=== PATIENT | female | born 2000 | race Caucasian/White ===

== ENCOUNTER 2023-11-09 01:06 | Emergency (ER) | payer MEDICAID, OTHER ==
[~2023-11-09] VITALS: Ht 162.6 cm; Wt 86.4 kg
[~2023-11-09 01:06] MED LIST: CLOB15CR10 TP; DIPH25CA53 PO; PRED-554 PO
[2023-11-09] MEDS ORDERED: BACTDSB PO (02:10)
[2023-11-09] MEDS ORDERED: LIDOCAINE/PF 1% 2 ML VIAL IM ONE (02:15)
[2023-11-09] MEDS ORDERED: CefTRIAXone SODIUM 1 GM/VIAL IM ONE (02:15)
[2023-11-09 02:37] VITALS: BP 116/73; PULSE 79; RESP 16; TEMP 98.3
== END 2023-11-09 02:40 | disposition home or self-care (01) ==
LOC: EMS 01:07
DX: L03.114 Cellulitis of left upper limb (principal); Z98.890 Other specified postprocedural states
CPT/HCPCS: 99283; 96372; J0696

== ENCOUNTER 2025-07-15 02:31 | Emergency (ER) | payer SELFPAY ==
[~2025-07-15] VITALS: Ht 162.6 cm; Wt 95.5 kg
[~2025-07-15 02:31] MED LIST changes: +BACTDSB PO; +CEPH-558 PO; +PHEN-846 PO
[2025-07-15 02:40] VITALS: TEMP 98.1
[2025-07-15 02:59] VITALS: BP 119/65; PULSE 74; RESP 16; O2SAT 98
[2025-07-15 03:14] LABS: APPEARANCE,URINE CLEAR (CLEAR); GLUCOSE, URINE (UA) NEGATIVE (NEGATIVE); LEUKOCYTE ESTERASE ,URINE SMALL (NEGATIVE); NITRATE,URINE NEGATIVE (NEGATIVE); OCCULT BLOOD,URINE NEGATIVE (NEGATIVE); SPECIFIC GRAVITIY, URINE 1.007 (1.003-1.030)
[2025-07-15 03:16] LABS: SQUAMOUS EPITHELIAL CELL,UR Few /LPF (None Seen)
== END 2025-07-15 03:36 | disposition home or self-care (01) ==
LOC: EMS 02:32
DX: R30.0 Dysuria (principal); R10.2 Pelvic and perineal pain; F12.90 Cannabis use, unspecified, uncomplicated; Z98.890 Other specified postprocedural states; Z79.52 Long term (current) use of systemic steroids; Z79.899 Other long term (current) drug therapy
CPT/HCPCS: 81001; 99283

== ENCOUNTER 2025-07-19 16:26 | Emergency (ER) | payer SELFPAY ==
[~2025-07-19] VITALS: Ht 162.6 cm; Wt 95.5 kg
[2025-07-19 16:32] VITALS: BP 120/63; PULSE 93; RESP 18; TEMP 98.4; O2SAT 97
[2025-07-19 17:03] LABS: APPEARANCE,URINE HAZY (CLEAR); GLUCOSE, URINE (UA) NEGATIVE (NEGATIVE); LEUKOCYTE ESTERASE ,URINE LARGE (NEGATIVE); NITRATE,URINE NEGATIVE (NEGATIVE); OCCULT BLOOD,URINE TRACE (NEGATIVE); SPECIFIC GRAVITIY, URINE 1.014 (1.003-1.030)
[2025-07-19 17:05] LABS: PLATELET COUNT (AUTO) 308 K/uL (150-450); RED BLOOD CELL COUNT(AUTO) 4.57 MIL/uL (4.00-5.20); RED CELL DISTRIBUTION WIDTH 14.6 % (11.5-14.5); WHITE BLOOD COUNT (AUTO) 9.6 K/uL (4.5-11.0)
[2025-07-19 17:09] LABS: CALCIUM, TOTAL 8.5 mg/dL (8.8-10.5); CREATININE 0.70 mg/dL (0.60-1.30); GLOMERULAR FILTR. RATE CALC > 60 mL/min (>60); GLUCOSE,RANDOM 101 mg/dL (70-110); SODIUM SERUM 140 mmol/L (136-145); UREA NITROGEN, BLOOD 7 mg/dL (7-18)
[2025-07-19 17:14] LABS: SQUAMOUS EPITHELIAL CELL,UR Moderate /LPF (None Seen)
[2025-07-19 17:22] LABS: HCG,QUANTITATIVE < 1 mIU/mL (0-6)
[2025-07-19] MEDS ORDERED: CEFP200T12 PO (17:48)
[2025-07-19] MEDS ORDERED: IBUP-1492 PO (17:48)
[2025-07-19] MEDS: CEFPODOXIME PROXETIL 200 MG TABLET PO ONE (18:19)
[2025-07-19] MEDS: KETOROLAC TROMETHAMINE 30 MG/ML VIAL IM ONE (18:19)
== END 2025-07-19 18:51 | disposition home or self-care (01) ==
LOC: EMS 16:26
DX: N39.0 Urinary tract infection, site not specified (principal); R30.0 Dysuria; R10.2 Pelvic and perineal pain; F12.90 Cannabis use, unspecified, uncomplicated; Z79.52 Long term (current) use of systemic steroids; Z98.890 Other specified postprocedural states; Z79.899 Other long term (current) drug therapy
CPT/HCPCS: 99283; 80048; 81001; 82150; 83690; 84702; 85025; 87077; 87086; 87186; 36415; 96372; J1885